=== PATIENT | female | born 1995 | race Caucasian/White ===

== ENCOUNTER 2019-01-20 03:43 | Day surgery (SDC) ==
[2019-01-20] MEDS ORDERED: TORADOL IV ONE (04:05)
--- NOTE | 2019-01-20 04:05 | PROVIDER DOCUMENTATION ---
HPI-Abdominal Pain/GI Problem - General Chief Complaint: Abdominal Pain Stated Complaint: ABD PAIN/V/D/ Time Seen by Provider: 01/20/19 04:01 Source: patient Allergies/Adverse Reactions: Patient Allergies Allergy/AdvReac Type Severity Reaction Status Date / Time pseudoephedrine Allergy Severe ANAPHYLAXIS Verified 01/20/19 04:06 [From [facility]] Home Medications: Home Medication List Medication Instructions Recorded Confirmed Last Taken Type Dicyclomine [Bentyl] 10 mg PO Q6H PRN PRN #30 cap 01/20/19 Unknown Rx Ketorolac [Toradol] 10 mg PO Q6H PRN PRN #20 tab 01/20/19 Unknown Rx Ondansetron [Zofran] 4 mg PO Q4H PRN PRN #30 tab 01/20/19 Unknown Rx - History of Present Illness-ABD Nature of Presenting Problems: Presents to the with complaints of upper abdominal pain. She states that it started around 11pm last night. She has a history of GB problems and cholestasis during her . She just delivered her baby 5 days ago. She denies any fevers or chills. She endorses some nausea but hasnt vomited yet. She states she has had multiple BMs but they are not diarrhea. She ate taco lozano for dinner last night. She is currently and is still having some vaginal bleeding. Denies any lower abdominal pain or dysuria. Review of Systems - Adult - REVIEW OF SYSTEMS - ADULT Constitutional: reports: see HPI. denies: chills, fatique Eyes: reports: no symptoms reported Ears, Nose, Mouth & Throat: reports: no symptoms reported Cardiovascular: reports: no symptoms reported Respiratory: reports: no symptoms reported Gastrointestinal: reports: see HPI, abdominal pain, nausea. denies: diarrhea, vomiting Genitourinary: reports: no symptoms reported, see HPI. denies: dysuria Musculoskeletal: reports: no symptoms reported Integumentary: reports: no symptoms reported Neurological: reports: no symptoms reported Psychiatric: reports: no symptoms reported Endocrine: reports: no symptoms reported Hematologic/Lymphatic: reports: no symptoms reported Allergic/Immunologic: reports: no symptoms reported All Other Systems: Reviewed and Negative Past History - Adult - PAST MEDICAL HISTORY-ADULT Review of Records: reports: Old Records Reviewed Psychiatric: reports: anxiety, depression - PRIOR SURGERIES/PROCEDURES Surgical/Procedure History: reports: none - IMMUNIZATION STATUS Childhood Immunizations: See Nurse Assessment Flu Vaccine: See Nurse Assessment - FAMILY HISTORY Family History: reviewed, not pertinent Physical Exam-General - PHYSICAL EXAM-ADULT Initial Vital Signs Reviewed: Yes - CONSTITUTIONAL General Appearance: alert, mild distress (uncomfortable appearing) - HEAD, EARS, NOSE, MOUTH & THROAT HENMT: normocephalic/atraumatic - NECK Neck: non-tender, full range of motion, supple, normal inspection - RESPIRATORY Respiratory: chest non-tender, lungs clear, normal breath sounds, no respiratory distress, no accessory muscle use - CARDIOVASCULAR Cardiovascular: normal peripheral pulses, regular rate, rhythm, no murmur - GASTROINTESTINAL (ABDOMEN) Abdominal Exam: normal bowel sounds, soft, tenderness (RUQ, epigastric) - MUSCULOSKELETAL Back Exam: normal inspection Extremity: normal range of motion, non-tender, normal gait, normal inspection, no pedal edema - SKIN Integumentary: normal color, warm/dry - NEUROLOGIC Neurologic: grossly normal - PSYCHIATRIC Psych/Mental Status: normal mood/affect, oriented x 3 Progress - PLAN OF CARE/RESULTS Progress/Plan/Lab Results: Vital Signs - 8 hr 01/20/19 03:52 Temperature 97.9 F Pulse Rate 87 Respiratory Rate 20 Blood Pressure 128/86 O2 Sat by Pulse Oximetry 92 L Orders Category Date Time Status Saline Loc DIRECTED Care 01/20/19 04:04 Ordered CBC WITH DIFF [HEME] Stat Lab 01/20/19 04:02 Ordered COMPREHENSIVE METABOLIC PANEL [CHEM] Stat Lab 01/20/19 04:02 Uncollected LIPASE [CHEM] Stat Lab 01/20/19 04:[address] W/POSS RFLX CULT [URINALYSIS] Stat Lab 01/20/19 04:02 Uncollected Ketorolac [Toradol] Med 01/20/19 04:05 Once 30 mg IV NOW ONE Result Diagrams: 01/20/19 04:29 01/20/19 04:29 - REASSESSMENT Reassessment #1 Time Reassessed: 05:30 Status: improving - ULTRASOUND (By Radiology) 1 US Study: Gallbladder Impression: Abnormal (stones) - CONSULTS/PCP/HOSPITALIST Notification #1 *Consult/PCP/Hospitalist*: dr obregon send to [facility] for surgery - CHANGE OF SHIFT REPORT (ED Provider) 1 Report Given and Care Transferred to:: Dr Harper Time of Transfer: 07:00 Items Pending: Ultrasound Results Departure - Departure Date of Disposition Decision: 01/20/19 Time of Disposition Decision: 08:07 DIAGNOSIS: Gallstones Disposition: ADMITTED INPATIENT 09 Certified Medical Emergency: Emergent Condition: Stable Prescriptions: Dicyclomine [Bentyl] 10 mg PO Q6H PRN PRN #30 cap PRN Reason: Abdominal cramping Ketorolac [Toradol] 10 mg PO Q6H PRN PRN #20 tab PRN Reason: Pain Ondansetron [Zofran] 4 mg PO Q4H PRN PRN #30 tab PRN Reason: Nausea Referrals and Follow-Ups: None,PCP [Primary Care Provider] - - Critical Care Note This patient required my direct & personal management of CC.: No Attestation - Physician/ DIANA Attestation Patient care was provided by Advanced Practice Provider:: No The physician spent face to face time with patient:: Yes Advanced Practice Provider documentation review:: Supervising physician onsite and consulted in the evaluation and care of this patient. The physician did have a face to face encounter with the patient.
[2019-01-20] MEDS ORDERED: ZOFRAN IV ONE (04:50)
[2019-01-20 04:54] LABS: BASO# 0.03 X1000 (0.0-0.2); BASO% 0.2 % (0.0-0.8); EOS# 0.19 X1000 (0.0-0.7); EOS% 1.4 % (0.0-10.0); HEMOGLOBIN 11.1 g/dL (12.0-16.0); IMM GRAN# 0.05 X1000 (0.0-0.04); IMM GRAN% 0.4 % (0.0-0.5); LYMPH# 1.69 X1000 (1.2-3.4); LYMPH% 12.7 % (20.5-51.1); MCH 29.8 PG (27-31); MCHC 31.7 g/dL (33-37); MCV 93.8 FL (81-99); MONO# 0.78 X1000 (0.11-0.59); MONO% 5.9 % (1.7-9.3); MPV 11.4 FL (7.4-10.4); NEUT# 10.59 X1000 (1.4-6.5); NEUT% 79.4 % (42.2-75.2); PLT 249 X1000 (130-400); RBC 3.73 XMIL (4.2-5.4); RDW 13.8 % (11.5-14.5); WBC 13.33 X1000 (4.8-10.8)
[2019-01-20 05:11] LABS: AGAP 14; ALBUMIN 3.6 g/dL (3.5-5.0); ALKALINE PHOSPHATASE 189 U/L (32-104); BUN 9 mg/dL (8-22); CALCIUM 9.7 mg/dL (8.8-10.2); CHLORIDE 105 mmol/L (98-107); COSMO 276; CREATININE 0.6 mg/dL (0.5-0.9); ESTIMATED GFR > 60; GLUCOSE 97 mg/dL (70-104); GOT 103 U/L (10-30); GPT 53 U/L (10-36); POTASSIUM 4.3 mmol/L (3.5-5.1); SODIUM 139 mmol/L (136-145); TCO2 20 mmol/L (25-35); TOTAL PROTEIN 6.2 g/dL (6.3-8.3)
[2019-01-20 05:55] LABS: BILIRUBIN URINE NEGATIVE (NEGATIVE); BLOOD URINE 4+ (NEGATIVE); CLARITY VERY CLOUDY (CLEAR); COLOR YELLOW; GLUCOSE URINE NEGATIVE (NEGATIVE); KETONE URINE TRACE mg/dL (NEGATIVE); LEUKOCYTES URINE 2+ (NEGATIVE); NITRITE URINE NEGATIVE (NEGATIVE); PROTEIN URINE TRACE mg/dL (NEGATIVE); UROBILINOGEN URINE 4 mg/dL
[2019-01-20 06:05] LABS: URINE BACTERIA 2+ /HFP; URINE EPITHELIAL CELLS <10 /HPF (<10); URINE RBC TNTC /HPF (<10); URINE SOURCE CLEAN CATCH
--- NOTE | 2019-01-20 07:23 | Diag Imaging Result Doc PS360 ---
US GB < RUQ (LIMITED) - 01/20/2019 INDICATION: GB TECHNIQUE: COMPARISON: None FINDINGS: There are a few small shadowing gallstones in the gallbladder. No gallbladder distention or significant inflammation. No biliary dilation. Common bile duct measures 2.2 mm. The liver, pancreas, and right kidney are normal. Aorta, IVC, and main portal vein are patent. IMPRESSION: Gallstones in the gallbladder. No gallbladder inflammation. Electronically signed by Arjun Huynh 01/20/2019 7:21 AM
[2019-01-20] MEDS ORDERED: NS 1,000 ML IV ONE (08:11)
[2019-01-20] MEDS ORDERED: QUELICIN (DOSE) ONE (09:12)
[2019-01-20] MEDS ORDERED: VERSED ONE (09:13)
[2019-01-20] MEDS ORDERED: MARCAINE 0.25% ONE (09:39)
[2019-01-20] MEDS ORDERED: KEFZOL 1 GM/D5W 1 GM/50 ML IVPB ONE (09:39)
[2019-01-20] MEDS ORDERED: LR 1,000 ML ONE (09:40)
[2019-01-20] MEDS ORDERED: SODIUM CHLORIDE 0.9% ONE (09:40)
[2019-01-20] MEDS ORDERED: DECADRON ONE (10:12)
[2019-01-20] MEDS ORDERED: NEO-SYNEPHRINE ONE (10:12)
[2019-01-20] MEDS ORDERED: XYLOCAINE-MPF 2% ONE ×2 (10:12→11:01)
[2019-01-20] MEDS ORDERED: ZOFRAN ONE (10:12)
[2019-01-20] MEDS: DILAUDID ONE ×2 (10:48→10:55)
[2019-01-20] MEDS ORDERED: DEMEROL ONE (10:50)
--- NOTE | 2019-01-20 10:52 | HISTORY AND PHYSICAL ---
HISTORY OF PRESENT ILLNESS: Ms. Nikole Solitario is a 23-year-old white female, who 6 days ago delivered her 1st child. During her , she had some upper abdominal discomfort, but last night, she had epigastric pain which was severe. It lasted 6 hours, and she presented to [facility] Emergency Department this morning for further evaluation. Dr. Harper evaluated her, which included an ultrasound of her abdomen which showed gallstones. It was felt that she had a gallbladder attack, and she was transferred from [facility] to [facility] for surgical care. PAST MEDICAL HISTORY: She had her 1st child 6 days ago at [facility] per Dr. Isaiah Mckoy. She had endometriosis. MEDICATIONS: None. ALLERGIES: Sulfa. SOCIAL HISTORY: She is . Her parents are close to her. Her child has jaundice at this time, but otherwise is healthy. She does not smoke. REVIEW OF SYSTEMS: A 14-point review of systems was performed and was essentially negative, except for history of present illness. FAMILY HISTORY: Her mother has had her gallbladder out. PHYSICAL EXAMINATION: GENERAL: On exam, Ms. Nikole Solitario is a young white female, in no acute distress. HEENT: No jaundice. No oral lesions. Satisfactory dentition. NECK: No cervical or supraclavicular lymphadenopathy. CARDIOVASCULAR: Her heart has a regular rate. LUNGS: Clear to auscultation and percussion bilaterally. GASTROINTESTINAL: Her abdomen is soft. She has stretch fraser. She has no evidence of hernia. There is no palpable mass. She may be mildly tender in the right upper quadrant. She had no costovertebral tenderness. RECTAL AND VAGINAL: Exams were not performed. VASCULAR: She does have palpable peripheral pulses. No peripheral edema. NEUROLOGICALLY: She is alert and oriented x3 and appropriate. DIAGNOSTIC STUDIES: An ultrasound documents gallstones. Liver function tests are normal. White blood cell count was slightly elevated. Electrolytes are within normal limits. IMPRESSION: 1. Symptomatic gallstones. 2. Status post . PLAN: Laparoscopic cholecystectomy with intraoperative cholangiogram today. I have discussed the procedure in detail with her in [place], including its risks of bleeding, infection, injury to intra-abdominal contents from trocar placement, injury to extrahepatic bile ducts requiring reoperation for drainage, and conversion of laparoscopic to open cholecystectomy. She understands the need for surgery and its risks, and she wants to proceed. cc: Oliva Dominguez MD
[2019-01-20] MEDS ORDERED: FENTANYL ONE (11:01)
[2019-01-20] MEDS ORDERED: DIPRIVAN 1% ONE (11:01)
--- NOTE | 2019-01-20 11:05 | Diag Imaging Result Doc PS360 ---
OPERATIVE CHOLANGIOGRAM - 01/20/2019 INDICATION: ACUTE CHOLECYSTITIS TECHNIQUE: The exam was performed by the patient's surgeon. One image was obtained. COMPARISON: None FINDINGS: Contrast was infused into the cystic duct. This outlines a normal common bile duct. There is good passage of contrast into the duodenum. IMPRESSION: No complication. Electronically signed by Arjun Huynh 01/20/2019 11:02 AM
[2019-01-20] MEDS ORDERED: ZOFRAN IV PRN (11:50)
[2019-01-20] MEDS ORDERED: NS 1,000 ML IV SCH (12:00)
[2019-01-20] MEDS: NORCO-7.5 PO PRN ×3 (12:12→19:45)
--- NOTE | 2019-01-20 15:03 | OPERATIVE NOTE ---
PROCEDURE DATE: 01/20/2019 PREOPERATIVE DIAGNOSIS: Acute cholecystitis with cholelithiasis. POSTOPERATIVE DIAGNOSIS: Acute cholecystitis with cholelithiasis. PRINCIPAL PROCEDURE: Laparoscopic cholecystectomy with intraoperative cholangiogram. SURGEON: Oliva Dominguez MD ANESTHESIA: General in addition to local anesthetic. ESTIMATED BLOOD LOSS: 25 mL. DRAINS: None. INDICATIONS: Ms. Nikole Solitario is a 23-year-old white female who 6 days ago delivered her 1st child. During the night, she had epigastric and right upper quadrant pain which was severe and lasted hours and not minutes. She presented to [facility] Emergency Department, and an ultrasound documented gallstones. It was felt that she had symptomatic gallstones, and she was transferred from [facility] to [facility] for further treatment. FINDINGS: Her gallbladder was inflamed, it was dull in color, and the pandey were slightly thickened. She had stones within it. We did do an intraoperative cholangiogram, which showed free flow of the dye into the duodenum without evidence of extrahepatic stones or obstruction. The liver appeared to be healthy. There is no abnormal dilatation of the extrahepatic bile ducts. The surface of the bowel also appeared to be healthy. No other intra-abdominal pathology was noted, and we felt we did the operation safely. DESCRIPTION OF PROCEDURE: The patient was brought to the operating room, placed supine, received general anesthesia, and was intubated. Her abdomen was prepped and draped within a sterile field. We began the procedure by making a small incision below the umbilicus using a #15 blade scalpel. Veress needle was introduced through this incision into the abdomen. Pneumoperitoneum was established. The Veress needle was removed. I placed 11 mm trocar through this incision into the abdomen. The camera was placed through this port and the abdomen was explored for injury and there was none. Three other trocars were placed along the right costal margin under direct vision the camera. I placed an 11 mm trocar just to the right of the midline and two 5 mm trocars in our midclavicular and anterior axillary lines. Through our most lateral port, the gallbladder was grasped and retracted superiorly along with the right lobe of the liver. Another grasper was used to grab the body of the gallbladder and the triangle of Calot was bluntly dissected. I dissected the cystic duct along its length. I placed a clip at the cystic duct/gallbladder junction. I made a small incision in the cystic duct using hook scissors and a Taut intraoperative cholangiogram catheter was used to perform the cholangiogram with the findings above. Once the cholangiogram was completed, I placed 2 clips proximally on the cystic duct and divided the cystic duct between the clips. The cystic artery was identified. We placed a clip distally, 2 proximally, and it was divided using hook scissors. The spatula cautery was used to remove the gallbladder from the liver bed. There was no spillage of stones or bile during this procedure, and I removed the gallbladder through our umbilical incision. I placed the trocar back through this incision and the area of operation was thoroughly inspected, irrigated, and the irrigation was removed with suction. There was no evidence of ongoing bleeding or bile leak. No drains were left. All trocars removed under direct vision of the camera. The pneumoperitoneum was allowed to dissipate. I used [id number] 2-0 Vicryl stitch to reapproximate the fascia at the umbilicus and all skin was closed with 4-0 Monocryl subcuticular stitches. Steri-Strips were applied. She tolerated the procedure well with plans for her to go the recovery room. She will go to the floor, but I think later today, she will be able to be discharged with follow- up in my outpatient office in 7 to 10 days. cc: Oliva Dominguez MD
[2019-01-20 19:21] VITALS: BP 132/82
== END 2019-01-20 22:19 | disposition home or self-care (01) ==
LOC: P.ED 03:43 → SURHOLD 03:43 → OPS 08:23 → 4N 08:45 → OPS 22:19
PROVIDERS: ATTEND Surgery